=== PATIENT | female | born 1995 | race Hispanic/Latino ===

== ENCOUNTER → 2018-10-10 14:59 | Outpatient (CLI) | payer OTHER, SELFPAY ==
[2018-10-10 15:47] LABS: Add Manual Diff / Slide Review NO; Basophils Absolute Auto 0 /uL (0-100); Basophils Percent Auto 0.3 % (0-2); Eosinophils Absolute Auto 100 /uL (0-450); Eosinophils Percent Auto 0.7 % (2-4); Hematocrit 42.9 % (36-46); Hemoglobin 14.3 g/dL (12.0-16.0); Lymphocytes Absolute Auto 1900 /uL (1100-4500); Mean Corpuscular HGB Conc 33.3 % (30-36); Mean Corpuscular Hemoglobin 29.9 PG (26-34); Mean Corpuscular Volume 89.7 fL (80-100); Monocytes Absolute Auto 500 /uL (0-900); Monocytes Percent Auto 6.1 % (3-14); Neutrophils Absolute Auto 5000 /uL (1500-7000); Neutrophils Percent Auto 67.9 % (50-75); Platelet Count 308 X10^3/uL (150-400); Red Blood Cell Count 4.78 X10^6/uL (4.0-5.2); Red Cell Distribution Width 13.1 % (11.6-14.8); White Blood Cell Count 7.4 X10^3/uL (4.5-11.0)
[2018-10-10 16:14] LABS: Alanine Aminotransferase 25 IU/L (9-52); Albumin 4.8 g/dL (3.5-5.0); Albumin Globulin Ratio 1.5 (1.0-2.8); Alkaline Phosphatase 59 U/L (38-126); Aspartate Aminotransferase 26 IU/L (14-36); BUN Creatinine Ratio 13.3 (6-22); Bilirubin Total 1.5 mg/dL (0.2-1.3); Blood Urea Nitrogen 8 mg/dL (7-17); Calcium 9.4 mg/dL (8.4-10.2); Carbon Dioxide 26 mmol/L (22-32); Chloride 103 mmol/L (98-107); Estimated Glomerular Filt Rate > 60.0 mL/min (>60); Globulin 3.3 g/dL (1.7-4.1); Glucose 88 mg/dL (70-100); HEMOLYSIS < 15 (0-50); Potassium 3.9 mmol/L (3.4-5.1); Sodium 140 mmol/L (137-145); Total Protein 8.1 g/dL (6.3-8.2)
[2018-10-10 16:28] LABS: Vitamin D 25 Hydroxy (D3) 31.3 ng/mL (30.0-100.0)
[2018-10-10 16:42] LABS: Thyroid Stimulating Hormone 1.94 uIU/mL (0.47-4.68)
[2018-10-10 17:04] LABS: Vitamin B12 706 pg/mL (239-931)
== END ==
PROVIDERS: Visit Provider Physician Assistant
DX: R53.83 Other fatigue (principal)
CPT/HCPCS: 36415; 80053; 82306; 82607; 84443; 85025

== ENCOUNTER → 2019-01-10 08:55 | Outpatient (CLI) | payer OTHER, SELFPAY ==
[2019-01-10 09:44] LABS: Add Manual Diff / Slide Review NO; Basophils Absolute Auto 100 /uL (0-100); Basophils Percent Auto 0.8 % (0-2); Eosinophils Absolute Auto 100 /uL (0-450); Eosinophils Percent Auto 1.6 % (2-4); Hematocrit 41.7 % (36-46); Hemoglobin 14.5 g/dL (12.0-16.0); Lymphocytes Absolute Auto 1800 /uL (1100-4500); Lymphocytes Percent Auto 28.1 % (25-40); Mean Corpuscular HGB Conc 34.8 % (30-36); Mean Corpuscular Hemoglobin 30.5 PG (26-34); Mean Corpuscular Volume 87.6 fL (80-100); Monocytes Absolute Auto 700 /uL (0-900); Monocytes Percent Auto 10.1 % (3-14); Neutrophils Absolute Auto 3900 /uL (1500-7000); Neutrophils Percent Auto 59.4 % (50-75); Platelet Count 297 X10^3/uL (150-400); Red Blood Cell Count 4.76 X10^6/uL (4.0-5.2); Red Cell Distribution Width 12.7 % (11.6-14.8); White Blood Cell Count 6.5 X10^3/uL (4.5-11.0)
[2019-01-10 09:53] LABS: Lithium 0.9 mmol/L (0.6-1.2)
[2019-01-10 10:07] LABS: Alanine Aminotransferase 21 IU/L (9-52); Albumin 5.1 g/dL (3.5-5.0); Alkaline Phosphatase 48 U/L (38-126); Aspartate Aminotransferase 25 IU/L (14-36); BUN Creatinine Ratio 14.3 (6-22); Bilirubin Total 1.9 mg/dL (0.2-1.3); Blood Urea Nitrogen 10 mg/dL (7-17); Calcium 9.9 mg/dL (8.4-10.2); Carbon Dioxide 29 mmol/L (22-32); Chloride 102 mmol/L (98-107); Estimated Glomerular Filt Rate > 60.0 mL/min (>60); Globulin 2.6 g/dL (1.7-4.1); Glucose 58 mg/dL (70-100); HEMOLYSIS < 15 (0-50); Potassium 4.4 mmol/L (3.4-5.1); Sodium 140 mmol/L (137-145); Total Protein 7.7 g/dL (6.3-8.2)
[2019-01-10 10:21] LABS: Thyroid Stimulating Hormone 2.45 uIU/mL (0.47-4.68)
== END ==
PROVIDERS: Visit Provider Psychiatry & Neurology Psychiatry
DX: Z51.81 Encounter for therapeutic drug level monitoring (principal); F31.60 Bipolar disorder, current episode mixed, unspecified
CPT/HCPCS: 36415; 80053; 80178; 84443; 85025

== ENCOUNTER → 2019-01-16 16:15 | Outpatient (CLI) | payer OTHER, SELFPAY ==
[2019-01-16 18:06] LABS: Lithium 0.8 mmol/L (0.6-1.2)
== END ==
PROVIDERS: Visit Provider Psychiatry & Neurology Psychiatry
DX: Z51.81 Encounter for therapeutic drug level monitoring (principal); F31.60 Bipolar disorder, current episode mixed, unspecified
CPT/HCPCS: 36415; 80178

== ENCOUNTER → 2019-05-17 13:16 | Outpatient (CLI) | payer OTHER, MEDICAID, SELFPAY ==
[2019-05-17 14:33] LABS: BUN Creatinine Ratio 16.7 (6-22); Blood Urea Nitrogen 10 mg/dL (7-17); Calcium 9.7 mg/dL (8.4-10.2); Carbon Dioxide 25 mmol/L (22-32); Chloride 102 mmol/L (98-107); Estimated Glomerular Filt Rate > 60.0 mL/min (>60); Glucose 92 mg/dL (70-100); HEMOLYSIS < 15 (0-50); Potassium 3.6 mmol/L (3.4-5.1); Sodium 139 mmol/L (137-145)
[2019-05-17 15:44] LABS: Lithium 0.7 mmol/L (0.6-1.2)
== END ==
PROVIDERS: Referring Provider Psychiatry & Neurology Psychiatry; Visit Provider Psychiatry & Neurology Psychiatry
DX: Z51.81 Encounter for therapeutic drug level monitoring (principal); F31.60 Bipolar disorder, current episode mixed, unspecified
CPT/HCPCS: 36415; 80048; 80178; 84443

== ENCOUNTER → 2019-09-26 09:03 | Outpatient (CLI) | payer OTHER, SELFPAY ==
[2019-09-26 10:53] LABS: Lithium 1.4 mmol/L (0.6-1.2)
[2019-09-26 10:55] LABS: Albumin 4.5 g/dL (3.5-5.0); Albumin Globulin Ratio 1.8 (1.0-2.8); Alkaline Phosphatase 56 U/L (38-126); Aspartate Aminotransferase 26 IU/L (14-36); BUN Creatinine Ratio 13.8 (6-22); Bilirubin Total 0.7 mg/dL (0.2-1.3); Blood Urea Nitrogen 9 mg/dL (7-17); Calcium 9.7 mg/dL (8.4-10.2); Carbon Dioxide 27 mmol/L (22-32); Chloride 106 mmol/L (98-107); Estimated Glomerular Filt Rate > 60.0 mL/min (>60); Globulin 2.5 g/dL (1.7-4.1); Glucose 80 mg/dL (70-100); HEMOLYSIS < 15 (0-50); Potassium 4.6 mmol/L (3.4-5.1); Sodium 138 mmol/L (137-145)
[2019-09-26 14:26] LABS: Alanine Aminotransferase 20 IU/L (<35)
== END ==
PROVIDERS: Referring Provider Psychiatry & Neurology Psychiatry; Visit Provider Psychiatry & Neurology Psychiatry
DX: Z51.81 Encounter for therapeutic drug level monitoring (principal)
CPT/HCPCS: 36415; 80053; 80178

== ENCOUNTER → 2019-10-04 12:46 | Outpatient (CLI) | payer OTHER, SELFPAY ==
[2019-10-04 15:19] LABS: Lithium 0.8 mmol/L (0.6-1.2)
== END ==
PROVIDERS: Referring Provider Psychiatry & Neurology Psychiatry; Visit Provider Psychiatry & Neurology Psychiatry
DX: Z51.81 Encounter for therapeutic drug level monitoring (principal); F31.60 Bipolar disorder, current episode mixed, unspecified
CPT/HCPCS: 36415; 80178

== ENCOUNTER → 2019-11-01 13:49 | Outpatient (CLI) | payer OTHER, SELFPAY ==
[2019-11-01 14:51] LABS: Lithium 0.5 mmol/L (0.6-1.2)
[2019-11-01 15:05] LABS: Alanine Aminotransferase 22 IU/L (<35); Albumin 5.1 g/dL (3.5-5.0); Albumin Globulin Ratio 1.6 (1.0-2.8); Alkaline Phosphatase 59 U/L (38-126); Aspartate Aminotransferase 28 IU/L (14-36); Bilirubin Total 1.8 mg/dL (0.2-1.3); Blood Urea Nitrogen 9 mg/dL (7-17); Calcium 9.9 mg/dL (8.4-10.2); Carbon Dioxide 21 mmol/L (22-32); Chloride 104 mmol/L (98-107); Estimated Glomerular Filt Rate > 60.0 mL/min (>60); Globulin 3.1 g/dL (1.7-4.1); Glucose 92 mg/dL (70-100); HEMOLYSIS < 15 (0-50); Potassium 4.5 mmol/L (3.4-5.1); Sodium 137 mmol/L (137-145); Total Protein 8.2 g/dL (6.3-8.2)
[2019-11-01 15:26] LABS: Thyroid Stimulating Hormone 2.92 uIU/mL (0.47-4.68)
== END ==
PROVIDERS: Referring Provider Psychiatry & Neurology Psychiatry; Visit Provider Psychiatry & Neurology Psychiatry
DX: F31.78 Bipolar disorder, in full remission, most recent episode mixed (principal); R53.83 Other fatigue; Z51.81 Encounter for therapeutic drug level monitoring
CPT/HCPCS: 36415; 80053; 80178; 84443

== ENCOUNTER → 2020-07-23 15:44 | Outpatient (CLI) | payer OTHER, SELFPAY ==
[2020-07-23 16:54] LABS: Alanine Aminotransferase 24 IU/L (<35); Albumin 4.5 g/dL (3.5-5.0); Albumin Globulin Ratio 1.6 (1.0-2.8); Alkaline Phosphatase 75 U/L (38-126); Aspartate Aminotransferase 42 IU/L (14-36); BUN Creatinine Ratio 11.4 (6-22); Bilirubin Total 1.5 mg/dL (0.2-1.3); Blood Urea Nitrogen 8 mg/dL (7-17); Calcium 9.1 mg/dL (8.4-10.2); Carbon Dioxide 24 mmol/L (22-32); Chloride 106 mmol/L (98-107); Estimated Glomerular Filt Rate > 60.0 mL/min (>60); Globulin 2.8 g/dL (1.7-4.1); Glucose 92 mg/dL (70-100); HEMOLYSIS < 15 (0-50); Potassium 4.1 mmol/L (3.4-5.1); Sodium 138 mmol/L (137-145); Total Protein 7.3 g/dL (6.3-8.2)
[2020-07-23 17:20] LABS: Lithium 0.4 mmol/L (0.6-1.2)
[2020-07-23 17:55] LABS: Thyroid Stimulating Hormone 2.91 uIU/mL (0.47-4.68)
[2020-07-25 12:30] LABS: Lamotrigine Lamictal 4.9 ug/mL (2.0-20.0)
== END ==
PROVIDERS: PCP Nurse Practitioner Family; Referring Provider Psychiatry & Neurology Psychiatry; Visit Provider Psychiatry & Neurology Psychiatry
DX: F31.78 Bipolar disorder, in full remission, most recent episode mixed (principal); Z51.81 Encounter for therapeutic drug level monitoring
CPT/HCPCS: 36415; 80053; 80175; 80178; 84443

== ENCOUNTER → 2021-01-26 16:58 | Outpatient (CLI) | payer OTHER, SELFPAY ==
[2021-01-26 17:40] LABS: Hematocrit 37.9 % (36-46); Hemoglobin 12.9 g/dL (12.0-16.0); Mean Corpuscular HGB Conc 34.1 % (30-36); Mean Corpuscular Hemoglobin 30.4 PG (26-34); Mean Corpuscular Volume 89.1 fL (80-100); Platelet Count 333 X10^3/uL (150-400); Red Blood Cell Count 4.25 X10^6/uL (4.0-5.2); Red Cell Distribution Width 13.1 % (11.6-14.8); White Blood Cell Count 7.6 X10^3/uL (4.5-11.0)
[2021-01-26 18:02] LABS: Alanine Aminotransferase 13 IU/L (<35); Albumin 4.5 g/dL (3.5-5.0); Albumin Globulin Ratio 1.7 (1.0-2.8); Alkaline Phosphatase 72 U/L (38-126); Aspartate Aminotransferase 21 IU/L (14-36); Bilirubin Total 0.4 mg/dL (0.2-1.3); Bilirubin Unconjugated 0.3 mg/dL (0.0-1.1); Globulin 2.6 g/dL (1.7-4.1); HEMOLYSIS < 15 (0-50); Sodium 139 mmol/L (137-145); Total Protein 7.1 g/dL (6.3-8.2)
[2021-01-26 18:11] LABS: Neutrophils Absolute Manual 5168 /uL (3000-5900); RBC Morphology Normal Morphology; Total Cells Counted 100
[2021-01-28 00:05] LABS: Carbamazepine Tegretol Level 2.7 ug/mL (4.0-12.0)
== END ==
PROVIDERS: PCP Nurse Practitioner Family; Referring Provider Psychiatry & Neurology Psychiatry; Visit Provider Psychiatry & Neurology Psychiatry
DX: Z51.81 Encounter for therapeutic drug level monitoring (principal)
CPT/HCPCS: 36415; 80076; 80156; 84295; 85025

== ENCOUNTER → 2021-04-03 12:28 | Outpatient (CLI) | payer OTHER, SELFPAY ==
--- NOTE | 2021-04-03 12:30 | DI.RAD.S_ITS ---
PROCEDURE: XR ANKLE LT MIN 3V INDICATIONS: L ankle pain, swelling, injury, TTP lateral malleolus TECHNIQUE: 3 views of the ankle were acquired. COMPARISON: None. FINDINGS: Bones: No fractures or dislocations. Ankle mortise is normally aligned. No suspicious bony lesions. Soft tissues: Mild lateral malleolar edema.. Achilles tendon appears normal. IMPRESSION: Lateral malleolar edema. No visualized acute fracture or dislocation. However, if clinical concern and/or pain persist, short interval imaging followup in 7-10 days is recommended, as occult injury cannot be definitively excluded. Dictated by: Margaret Palmer M.D. on 04/03/2021 at 13:08 Approved by: Margaret Palmer M.D. on 04/03/2021 at 13:08
== END ==
PROVIDERS: PCP Nurse Practitioner Family; Referring Provider Nurse Practitioner Family; Visit Provider Nurse Practitioner Family
DX: S99.912A Unspecified injury of left ankle, initial encounter (principal); X58.XXXA Exposure to other specified factors, initial encounter
CPT/HCPCS: 73610

== ENCOUNTER → 2021-07-21 17:22 | Outpatient (CLI) | payer OTHER, MEDICAID, SELFPAY ==
[2021-07-21 17:54] LABS: Add Manual Diff / Slide Review NO; Basophils Absolute Auto 0 /uL (0-100); Basophils Percent Auto 0.7 % (0-2); Eosinophils Absolute Auto 200 /uL (0-450); Hematocrit 40.4 % (36-46); Hemoglobin 13.9 g/dL (12.0-16.0); Lymphocytes Absolute Auto 2100 /uL (1100-4500); Lymphocytes Percent Auto 29.3 % (25-40); Mean Corpuscular HGB Conc 34.4 % (30-36); Mean Corpuscular Hemoglobin 30.4 PG (26-34); Mean Corpuscular Volume 88.2 fL (80-100); Monocytes Absolute Auto 600 /uL (0-900); Monocytes Percent Auto 7.8 % (3-14); Neutrophils Absolute Auto 4300 /uL (1500-7000); Neutrophils Percent Auto 59.2 % (50-75); Platelet Count 326 X10^3/uL (150-400); Red Blood Cell Count 4.58 X10^6/uL (4.0-5.2); Red Cell Distribution Width 13.5 % (11.6-14.8); White Blood Cell Count 7.2 X10^3/uL (4.5-11.0)
[2021-07-21 18:03] LABS: Alanine Aminotransferase 33 IU/L (<35); Albumin Globulin Ratio 1.6 (1.0-2.8); Alkaline Phosphatase 88 U/L (38-126); Aspartate Aminotransferase 37 IU/L (14-36); Bilirubin Total 0.4 mg/dL (0.2-1.3); Blood Urea Nitrogen 13 mg/dL (7-17); Calcium 9.1 mg/dL (8.4-10.2); Carbon Dioxide 28 mmol/L (22-32); Chloride 103 mmol/L (98-107); Estimated Glomerular Filt Rate > 60 mL/min (>60); Globulin 3.1 g/dL (1.7-4.1); Glucose 98 mg/dL (70-100); HEMOLYSIS < 15 (0-50); Potassium 4.3 mmol/L (3.4-5.1); Sodium 139 mmol/L (137-145); Total Protein 8.1 g/dL (6.3-8.2)
[2021-07-21 18:30] LABS: Lithium 0.4 mmol/L (0.6-1.2)
[2021-07-21 19:05] LABS: Thyroid Stimulating Hormone 3.53 uIU/mL (0.47-4.68)
[2021-07-22 04:42] LABS: Carbamazepine Tegretol Level 3.4 ug/mL (4.0-12.0)
[2021-07-23 12:07] LABS: Lamotrigine Lamictal 2.7 ug/mL (2.0-20.0)
== END ==
PROVIDERS: PCP Nurse Practitioner Family; Referring Provider Psychiatry & Neurology Psychiatry; Visit Provider Psychiatry & Neurology Psychiatry
DX: Z51.81 Encounter for therapeutic drug level monitoring (principal); F31.78 Bipolar disorder, in full remission, most recent episode mixed
CPT/HCPCS: 36415; 80053; 80156; 80175; 80178; 84443; 85025

== ENCOUNTER → 2021-11-30 17:38 | Outpatient (CLI) | payer OTHER, MEDICAID, SELFPAY | PROVIDERS: PCP Nurse Practitioner Family; Visit Provider Student in an Organized Health Care Education/Training Program | DX: R30.0 Dysuria (principal) | CPT/HCPCS: 81002; 87086 ==

== ENCOUNTER 2022-07-18 03:50 | Emergency (ER) | payer OTHER, MEDICAID, SELFPAY ==
[2022-07-18 04:03] VITALS: BP 138/92; PULSE 58; RESP 18; TEMP 36.2; O2SAT 98
--- NOTE | 2022-07-18 04:03 | ED_ITS ---
HPI - General Adult General Stated complaint: Right ear plugged foreign object Time Seen by Provider: 07/18/22 03:54 History of Present Illness HPI narrative: 27-year-old female nonsmoker with chronic hearing problems presents with her significant other and a chief complaint of a retained foreign body in her right ear. She states that earlier tonight the flexible silicone tip from her hearing aid came off and has become stuck in her right ear. She has minimal pain but states sounds are muffled. She denies any bleeding or drainage. She denies fever or chills. She is not dizzy or lightheaded. She is otherwise well and free of complaint Related Data Home Medications Medication Instructions Recorded Confirmed 3mg Bryan Melatonin gummy See Rx Instructions PO BEDTIME PRN 09/23/20 11/30/21 sleep Previous Rx's Medication Instructions Recorded lorazepam 1 mg tablet 1 mg PO TID PRN severe anxiety or 05/25/21 insomnia #5 tabs clindamycin 1 %-benzoyl peroxide 5 See Rx Instructions .Route 09/24/21 % topical gel .COMPLEX #50 grams tretinoin 0.05 % topical cream See Rx Instructions .Route 09/24/21 .COMPLEX #45 grams carbamazepine 200 mg 200 mg PO BID #180 tabs 11/27/21 tablet,extended release,12 hr lamotrigine 200 mg tablet 200 mg PO BEDTIME #90 tabs 11/27/21 lithium carbonate 300 mg 600 mg PO BEDTIME #180 tabs 07/05/22 tablet,extended release Allergies Allergy/AdvReac Type Severity Reaction Status Date / Time Erythromycin Allergy Unknown RASH Uncoded 11/30/21 17:45 Review of Systems Review of Systems Narrative: GENERAL: Denies chills, fatigue, malaise, fever, sweats. HEENT: See HPI RESPIRATORY: Denies dyspnea, cough, wheezing, hemoptysis, sputum. CARDIOVASCULAR: Denies chest pain, palpitations, orthopnea, edema, GASTROINTESTINAL: Denies nausea, vomiting, abdominal pain, diarrhea, constipation, melena. : Denies dysuria, frequency, incontinence, hematuria, urinary retention. MUSCULOSKELETAL: denies weakness, joint pain, or bony pain SKIN: Denies rash, skin lesions, or other NEUROLOGIC: Denies weakness, headache, numbness, change in speech, confusion, seizures, incoordination. PSYCHIATRIC: No concerning psychosocial issues. 12 point review of systems is negative except for those stated above Patient History Medical History Bipolar 1 disorder, mixed Chicken pox Encounter for wellness examination in adult Hearing loss Surgical History [place] teeth removed Social History Smoking Status: Never smoker second hand exposure: No alcohol intake: current (2x/week) substance use type: does not use Smoking Status: Never smoker Exam Narrative Exam Narrative: GEN: AOx3 and in mild distress EYES: Pupils are equal, round, and reactive to light and accommodation. Extraoccular muscles are intact bilaterally. There is no subconjunctival hemorrhage or exudate. ENT: Foreign body noted deep in the right external auditory canal. No evidence of bleeding or discharge. It is easily removed with a pair of hemostats, tympanic membrane viewed after its removal and there is no evidence of traumatic injury, erythema, bleeding or other abnormality. CHEST: Lungs are clear to auscultation bilaterally and free of wheezes, rales, or rhonchi. Heart rate is regular rhythm, there are no murmurs, clicks, rubs, or gallops. There is no chest wall tenderness. ABD: Abdomen is soft and nontender. There is no guarding or rebound. Bowel sounds are normal in all 4 quadrants. There is no mass or organomegaly. EXT: Full painless ROM of all extremities with no loss of sensation or strength. SKIN: Warm, pink, and dry. No erythema or rash Procedures Foreign Body EAR Location: ear canal (R) Foreign Body Suspected: other plastic TM intact pre-procedure: unable to visualize Foreign Body Removed: yes Foreign Body Removal Technique: instrumentation Tympanic Membrane Intact Post Procedure: Yes Patient Tolerated Procedure: Well Complications: none Medical Decision Making MDM Narrative Medical decision making narrative: 27-year-old female with foreign body in right ear. She reports a fullness but denies any pain or drainage. It is easily removed by procedure mentioned above. Tympanic membrane is clear and intact visualized after the procedure. She is asymptomatic, tolerated well. Return precautions given and questions answered to her apparent satisfaction Discharge Plan Departure Patient Disposition: Home Clinical Impression: Acute foreign body of right ear Activity Restrictions/Additional Instructions: *You have been diagnosed with [foreign body right external auditory canal, easily removed. The underlying eardrum appears on damaged] *What to do: *Please continue to take your regular medications as directed. *Please follow up with your primary care provider in 2-3 days, call for an appointment. Let them know you were seen in the Emergency Department and that we ask that you be seen in follow up. We will electronically transmit a record of today's note if your PCP is in our system *Return to Emergency Department if you should have any new, worsening or con cerning symptoms Prescriptions: No Action 3mg Bryan Melatonin gummy See Rx Instructions PO BEDTIME PRN (Reason: sleep) Rx Instructions: 1-2 gummies PO bedtime PRN; lorazepam 1 mg tablet 1 mg PO TID PRN (Reason: severe anxiety or insomnia) Qty: 5 1RF tretinoin 0.05 % cream See Rx Instructions .ROUTE .COMPLEX Qty: 45 0RF Dose Instruction: APPLY 1 APPLICATION TOPICALLY AT BEDTIME NEEDED FOR ANCE. USE SPEARINGLY AT BEDTIME. AVOID CONTACT WITH EYES. Rx Instructions: APPLY 1 APPLICATION TOPICALLY AT BEDTIME NEEDED FOR ANCE. USE SPEARINGLY AT BEDTIME. AVOID CONTACT WITH EYES. clindamycin-benzoyl peroxide 1-5 % gel See Rx Instructions .ROUTE .COMPLEX Qty: 50 0RF Dose Instruction: APPLY TOPICALY TO AFFECTED AREA. USE ONCE FAILY IN THE MORNING AFTER WASHING. Rx Instructions: APPLY TOPICALY TO AFFECTED AREA. USE ONCE FAILY IN THE MORNING AFTER WASHING. carbamazepine 200 mg tablet extended release 12 hr 200 mg PO BID Qty: 180 1RF lamotrigine 200 mg tablet 200 mg PO BEDTIME Qty: 90 1RF lithium carbonate 300 mg tablet extended release 600 mg PO BEDTIME Qty: 180 0RF Referrals: Agnes Stovall ARNP [Primary Care Provider] - Stand Alone Forms: Patient Portal/API
== END 2022-07-18 04:24 | disposition home or self-care (01) ==
PROVIDERS: Emergency Provider Emergency Medicine; PCP Nurse Practitioner Family
DX: T16.1XXA Foreign body in right ear, initial encounter (principal); X58.XXXA Exposure to other specified factors, initial encounter
CPT/HCPCS: 69200; 99281; 99282

== ENCOUNTER → 2023-04-12 08:23 | Outpatient (CLI) | payer OTHER, MEDICAID, SELFPAY ==
[2023-04-12 09:01] LABS: Add Manual Diff / Slide Review NO; Basophils Absolute Auto 0 /uL (0-100); Basophils Percent Auto 0.6 % (0-2); Eosinophils Absolute Auto 200 /uL (0-450); Eosinophils Percent Auto 2.4 % (2-4); Hematocrit 40.4 % (36-46); Hemoglobin 13.8 g/dL (12.0-16.0); Lymphocytes Absolute Auto 1400 /uL (1100-4500); Lymphocytes Percent Auto 20.6 % (25-40); Mean Corpuscular HGB Conc 34.2 % (30-36); Mean Corpuscular Volume 87.7 fL (80-100); Monocytes Absolute Auto 500 /uL (0-900); Monocytes Percent Auto 8.2 % (3-14); Neutrophils Absolute Auto 4500 /uL (1500-7000); Neutrophils Percent Auto 68.2 % (50-75); Platelet Count 280 X10^3/uL (150-400); Red Blood Cell Count 4.61 X10^6/uL (4.0-5.2); Red Cell Distribution Width 13.3 % (11.6-14.8); White Blood Cell Count 6.6 X10^3/uL (4.5-11.0)
[2023-04-12 09:16] LABS: Lithium 0.8 mmol/L (0.6-1.2)
[2023-04-12 09:20] LABS: Alanine Aminotransferase 15 IU/L (<35); Albumin 4.1 g/dL (3.5-5.0); Albumin Globulin Ratio 1.5 (1.0-2.8); Alkaline Phosphatase 60 U/L (38-126); Aspartate Aminotransferase 20 IU/L (14-36); BUN Creatinine Ratio 14.1 (6-22); Bilirubin Total 0.4 mg/dL (0.2-1.3); Blood Urea Nitrogen 11 mg/dL (7-17); Calcium 9.2 mg/dL (8.4-10.2); Carbon Dioxide 25 mmol/L (22-32); Chloride 107 mmol/L (98-107); Estimated Glomerular Filt Rate > 60 mL/min (>60); Globulin 2.8 g/dL (1.7-4.1); Glucose 105 mg/dL (70-100); HEMOLYSIS < 15 (0-50); Potassium 4.7 mmol/L (3.4-5.1); Sodium 138 mmol/L (137-145); Total Protein 6.9 g/dL (6.3-8.2)
[2023-04-15 09:26] LABS: Lamotrigine Lamictal 3.8 ug/mL (2.0-20.0)
== END ==
PROVIDERS: Referring Provider Psychiatry & Neurology Psychiatry; Visit Provider Psychiatry & Neurology Psychiatry
DX: F31.78 Bipolar disorder, in full remission, most recent episode mixed (principal); Z51.81 Encounter for therapeutic drug level monitoring; Z79.899 Other long term (current) drug therapy
CPT/HCPCS: 36415; 80053; 80175; 80178; 85025

== ENCOUNTER → 2024-11-26 13:04 | Outpatient (CLI) | payer OTHER, SELFPAY ==
[2024-11-26 13:32] LABS: Add Manual Diff / Slide Review NO; Hematocrit 43.3 % (36-46); Hemoglobin 14.8 g/dL (12.0-16.0); Lymphocytes Absolute Auto 1200 /uL (1100-4500); Mean Corpuscular HGB Conc 34.0 % (30-36); Mean Corpuscular Hemoglobin 30.3 PG (26-34); Mean Corpuscular Volume 89.0 fL (80-100); Platelet Count 299 X10^3/uL (150-400)
[2024-11-26 13:49] LABS: Lithium 0.2 mmol/L (0.6-1.2)
[2024-11-26 13:53] LABS: Alanine Aminotransferase 16 IU/L (<35); Albumin 5.0 g/dL (3.5-5.0); Albumin Globulin Ratio 1.7 (1.0-2.8); Alkaline Phosphatase 73 U/L (38-126); Blood Urea Nitrogen 13 mg/dL (7-17); Calcium 9.4 mg/dL (8.4-10.2); Carbon Dioxide 25 mmol/L (22-32); Chloride 103 mmol/L (98-107); Estimated Glomerular Filt Rate > 60 mL/min (>60); Globulin 3.0 g/dL (1.7-4.1); Glucose 88 mg/dL (70-99); HEMOLYSIS < 15 (0-50); Potassium 4.5 mmol/L (3.4-5.1); Sodium 138 mmol/L (137-145); Total Protein 8.0 g/dL (6.3-8.2)
[2024-11-26 14:23] LABS: TSH w/ Reflex to FT4 2.57 uIU/mL (0.47-4.68)
[2024-11-27 03:08] LABS: Carbamazepine Tegretol Level 4.1 ug/mL (4.0-12.0)
[2024-11-28 07:11] LABS: Lamotrigine Lamictal 4.3 ug/mL (2.0-20.0)
== END ==
PROVIDERS: Referring Provider Psychiatry & Neurology Psychiatry; Visit Provider Psychiatry & Neurology Psychiatry
DX: Z79.899 Other long term (current) drug therapy (principal); F31.78 Bipolar disorder, in full remission, most recent episode mixed
CPT/HCPCS: 36415; 80053; 80156; 80175; 80178; 84443; 85025